=== PATIENT | male | born 1970 | race Caucasian/White ===

== ENCOUNTER 2021-05-10 10:02 | Emergency (ER) | payer OTHER, SELFPAY ==
[2021-05-10 10:19] VITALS: BP 149/99; PULSE 115; RESP 18; TEMP 37.3; O2SAT 100
--- NOTE | 2021-05-10 10:19 | ED.CHESTPAIN ---
HPI - Chest Pain General Chief Complaint: Chest Pain Stated Complaint: Chest pain Time Seen by Provider: 05/10/21 10:19 Source: patient and RN notes reviewed Mode of arrival: ambulatory Limitations: no limitations History of Present Illness HPI narrative: 50-year-old male presents to the [facility] the [facility] with complaints of sternal chest pain that woke him up out of his sleep at 0600. Patient denies any shortness of breath, nausea, vomiting. Denies being diaphoretic. Denies any cardiac history. States he does have a history of gout. Related Data Home Medications Medication Instructions Recorded Confirmed allopurinol 300 mg PO DAILY 08/08/19 05/10/21 Allergies Allergy/AdvReac Type Severity Reaction Status Date / Time atorvastatin Allergy Unknown Palpitation Verified 05/10/21 10:36 s Penicillins Allergy Unknown Unknown Verified 05/10/21 10:36 fenofibrate AdvReac Unknown HEART Verified 05/10/21 10:36 PALPITATIONS Review of Systems Review of Systems: All systems reviewed & are unremarkable except as noted in HPI and below Constitutional: Constitutional: Reports no additional constitutional complaints, Denies chills and Denies fever(s) Eyes: Eyes: Reports no additional eye complaints ENT: Reports system reviewed and no additional complaints, except as documented Cardiovascular: Cardiovascular: Reports chest pain, Reports rapid heart rate and Denies radiating jaw, neck or arm pain Respiratory: Respiratory: Reports no additional respiratory complaints, Denies cough and Denies dyspnea Gastrointestinal: Gastrointestinal: Reports no additional gastrointestinal complaints, Denies abdominal pain, Denies nausea and Denies vomiting Musculoskeletal: Musculoskeletal: Reports no additional musculoskeletal complaints Integumentary/Breasts: Skin/Breast: Reports system reviewed and no additional complaints, except as docu Neurologic: Reports system reviewed and no additional complaints, except as documented Psychiatric: Psychiatric: Reports no additional psychiatric complaints Allergic/Immunologic: Allergic/Immunologic: Reports no additional allergic/immunologic complaints [facility] Past Medical History Medical History (Updated 05/10/21 @ 12:17 by Kellie Rahman) Gout Social History Social History Gender identity (if verbalized by the patient): Male Comments At the time of my signature, I reviewed and agree with the nursing past medical, surgical, social, and family history. There is no relevant family history pertinent to the patient complaint. Exam Const: General: healthy appearing and no acute distress Nutritional Appearance: well nourished and obese Orientation/consciousness: patient oriented x3 Limitations: no limitations HENMT: Head: normal to inspection Eyes: Pupils: Equal, round and reactive pupils present Neck: Neck: normal visual inspection, no lymphadenopathy and no meningeal signs Chest: Chest palpation & inspection: normal inspection of the chest Resp: Effort & Inspection: normal respiratory effort Cardio: Rate: tachycardic GI: GI Palp: Yes Soft to palpation and No Tenderness to palpation present (GI) Back/Spine/Pelvis: Back: no CVA tenderness Skin: General skin exam: normal color Rashes: no rashes Wounds: no wounds Course Course Emergency Course: Transfer instructions reviewed with patient, as well as provided in writing per nursing staff. The instructions also include specific and strict GO TO THE ER. Patient was offered EMS transport, patient declined. Explained risks and benefits of declining EMS transport, patient verbalized understanding All questions have been answered, and the patient deny any further questions. Vital Signs Vital signs: Vital Signs Temperature 99.2 F 05/10/21 10:19 Pulse Rate 115 H 05/10/21 10:19 Respiratory Rate 18 05/10/21 10:19 Blood Pressure 149/99 H 05/10/21 10:19 Pulse Oximetry 100 09
--- NOTE | 2021-05-10 10:20 | ECG_ITS ---
Measurements Intervals [place] Rate: 105 P: 49 MT: 156 QRS: 21 QRSD: 86 T: 29 QT: 319 QTc: 422 Interpretive Statements SINUS TACHYCARDIA ANTEROSEPTAL INFARCT, AGE INDETERMINATE CONSIDER INFERIOR INFARCT, AGE INDETERMINATE BORDERLINE T WAVE ABNORMALITY- LAT/HIGH LAT LEADS ABNORMAL ECG Electronically Signed On 05-10-2021 10:48:08 CDT by Jacky Hernandez D.O.
[2021-05-10] MEDS: ASPIRIN 81 MG CHEWABLE TABLET 324 MG PO (10:34)
--- NOTE | 2021-05-10 10:38 | ECG_ITS ---
Rate 111 [place] 179 QRSd 85 QT 319 QTc 434 --[place]-- P 57 QRS 30 T 27 SINUS TACHYCARDIA MINIMAL Q WAVES- INFERIOR LEADS ANTEROSEPTAL INFARCT, AGE INDETERMINATE BORDERLINE T WAVE ABNORMALITY- INF/LAT LEADS ABNORMAL ECG Electronically Signed On 05-10-2021 11:07:18 CDT by Jacky Hernandez D.O. COMPARED TO ECG 05/10/2021 10:32:43 NO SIGNIFICANT CHANGES MTDD
== END 2021-05-10 10:42 | disposition short-term general hospital (02) ==
PROVIDERS: Emergency Provider Nurse Practitioner; PCP Internal Medicine
DX: R07.9 Chest pain, unspecified (principal)
CPT/HCPCS: 93005; 99213; A9270; G0463

== ENCOUNTER 2021-05-10 11:00 | Emergency (ER) | payer OTHER, SELFPAY ==
--- NOTE | ~2021-05-10 | XR_ITS ---
EXAMINATION: XR chest 2V DATE: 05/10/2021 11:35 INDICATION: Midsternal chest pain. TECHNIQUE: PA and lateral views of the chest were obtained. COMPARISON: Chest radiograph dated 11/29/04 FINDINGS: The lungs remain clear with no focal airspace opacities, pulmonary edema, pleural effusion or pneumot horax. The cardiomediastinal silhouette is normal. Mild thoracic spondylosis. IMPRESSION: 1. No acute cardiopulmonary disease. Reviewed, dictated and finalized at location A.
--- NOTE | 2021-05-10 11:03 | ECG_ITS ---
SINUS TACHYCARDIA ANTEROSEPTAL INFARCT, AGE INDETERMINATE INFERIOR INFARCT, AGE INDETERMINATE BORDERLINE ST-T WAVE ABNORMALITY- HIGH LATERAL LEADS ABNORMAL ECG Electronically Signed On 05-12-2021 14:13:25 CDT by Jacky RUSSELL
[2021-05-10 11:36] LABS: Basophils Percent Auto 0.3 % (0.2-1.2); Eosinophils Percent Auto 0.3 % (0-4.4); Hematocrit 45.7 % (42.0-52.0); Hemoglobin 15.4 g/dL (14.0-18.0); Immature Granulocyte Absolute 0.01 K/mm3 (0.00-0.031); Immature Granulocyte Percent A 0.2 % (0-0.5); Lymphocytes Absolute Auto 1.09 K/mm3 (0.9-3.2); Lymphocytes Percent Auto 18.5 % (18.3-44.2); Mean Corpuscular HGB Conc 33.7 g/dl (32-36); Mean Corpuscular Volume 88.9 fl (80-100); Mean Platelet Volume 9.4 fl (7.4-10.4); Monocytes Absolute Auto 0.4 K/mm3 (0.1-0.6); Monocytes Percent Auto 6.1 % (2.6-8.5); Neutrophils Absolute Auto 4.4 K/mm3 (1.3-6.7); Neutrophils Percent Auto 74.6 % (45.5-73.1); Platelet Count Result 250 k/mm3 (150-375); Red Blood Count 5.14 M/mm3 (4.6-6.20); Red Cell Distribution Width 12.7 % (11.5-14.5); White Blood Count 5.9 K/mm3 (4.5-10.0)
[2021-05-10 11:49] LABS: Anion Gap 12 mmol/L (8-16); Blood Urea Nitrogen 11 mg/dL (9-20); Calcium 9.9 mg/dL (8.4-10.2); Carbon Dioxide 25 mmol/L (22-30); Chloride 101 mmol/L (98-107); Estimated Glomerular Filt Rate > 60; Glucose 117 mg/dL (65-110); Potassium 4.5 mmol/L (3.4-5.0); Sodium 138 mmol/L (137-145)
[2021-05-10 12:00] LABS: INR 0.9; Partial Thromboplastin Time 26.6 SECONDS (22.3-36.8); Prothrombin Time 12.2 Seconds (11.1-14.7)
[2021-05-10 12:02] LABS: Troponin I < 0.012 ng/mL (0.000-0.034)
[2021-05-10 13:28] VITALS: BP 174/92; PULSE 109; RESP 18; TEMP 36.6; O2SAT 100
--- NOTE | 2021-05-10 13:34 | PC.NURSE ---
patient reports that he wants to leave the hospital and has no cheat pain. patient states that he will just get his records and go see his PCP later this week. Patient walked out of ED without difficulty.
== END 2021-05-10 13:34 | disposition left against medical advice (07) ==
PROVIDERS: Emergency Provider Emergency Medicine; PCP Internal Medicine
DX: R07.89 Other chest pain (principal)
CPT/HCPCS: 36415; 71046; 80048; 84484; 85025; 85610; 85730; 93005; 99199

== ENCOUNTER 2021-12-14 17:22 | Emergency (ER) | payer OTHER, SELFPAY ==
[2021-12-14 17:32] VITALS: BP 140/91; PULSE 119; RESP 18; TEMP 37.1; O2SAT 100
--- NOTE | 2021-12-14 17:57 | ED.URI ---
HPI - URI/Sore Throat General Chief Complaint: Upper Respiratory Infection Stated Complaint: Cough,Vomiting Time Seen by Provider: 12/14/21 17:32 Source: patient and RN notes reviewed Mode of arrival: ambulatory Limitations: no limitations History of Present Illness HPI Narrative: 51-year-old male presenting for complaint of cough since 11/30/2021. He states he had taken new medication lisinopril/HCTZ approximately 8 doses prior to the start of the cough. He was seen at his PCPs office yesterday, advised to stop taking the medication for the nonproductive cough. The last dose was 2 days ago. Endorses coughing is worse at night, to the point of dry heaves. He denies associated chest pain, palpitations, dizziness, shortness of breath, wheezing, nausea, vomiting, fevers or chills. He reports concern if the medication is causing the cough versus an illness. Denies sick contacts. He is not vaccinated for COVID or flu. He states he is scheduled to follow-up with his PCP in 2 days. MD elicited complaint: cough Related Data Home Medications Medication Instructions Recorded Confirmed allopurinol 300 mg PO DAILY 08/08/19 12/14/21 lisinopril-hydrochlorothiazide tablet 12/14/21 12/14/21 Allergies Allergy/AdvReac Type Severity Reaction Status Date / Time atorvastatin Allergy Unknown Palpitation Verified 05/10/21 13:31 s Penicillins Allergy Unknown Unknown Verified 05/10/21 13:31 fenofibrate AdvReac Unknown HEART Verified 05/10/21 13:31 PALPITATIONS lisinopril AdvReac Cough Verified 12/14/21 17:58 Review of Systems Review of Systems: CONSTITUTIONAL: Denies malaise, chills, sweats, fever EYES: Denies visual changes, redness, or discharge ENT: Reports rhinorrhea, denies congestion, sinus pain, otalgia, sore throat CARDIOVASCULAR: Denies chest pain, palpitations, edema RESPIRATORY: Reports cough, post nasal drainage. Denies dyspnea GASTROINTESTINAL: Denies abdominal pain, nausea, vomiting, diarrhea SKIN: Denies rash or itching MUSCULOSKELETAL: Denies myalgia NEUROLOGIC: Denies headache PMFSH Past Medical History Medical History Gout Social History Social History : Male Exam Narrative: GENERAL: well -appearing HEAD: Normocephalic EYES: conjunctivae clear ENT: Mucous membranes moist. TM pearly davidson with dull light reflex bilaterally; no tragal tenderness. Oropharynx erythematous without lesions or exudate, no drooling, no hoarseness, no trismus, uvula midline. No tripod positioning, muffled voice, soft palate or pharyngeal wall bulging NECK: Supple. 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 Lungs Clear to auscultation, breath sounds equal. No wheezing, rhonchi, rales, or stridor. No respiratory distress, speaks in full sentences. HEART: Regular rate and rhythm. No murmur heard. SKIN: Warm, dry, no rash. NEURO: Alert and oriented x3. PSYCH: talkative/anxious Course Course Emergency Course: Patient is aware of diagnosis, understands and agrees to treatment plan. Anticipatory guidance given. Patient agrees to follow-up as directed and is aware of reasons to seek care at the emergency department. Portions of this record may have been created with voice recognition software Level of Care: Express Care Visit Vital Signs Vital signs: Vital Signs Temperature 98.8 F 12/14/21 17:32 Pulse Rate 119 H 12/14/21 17:32 Respiratory Rate 18 12/14/21 17:32 Blood Pressure 140/91 H 12/14/21 17:32 Pulse Oximetry 100 12/14/21 17:32 Temperature 98.8 F 12/14/21 17:32 Pulse Rate 119 H 12/14/21 17:32 Respiratory Rate 18 12/14/21 17:32 Blood Pressure 140/91 H 12/14/21 17:32 Pulse Oximetry 100 12/14/21 17:32 reviewed MDM - URI/Sore Throat MDM Narrative Medical decision making narrative: covid, strep tests negative. CXR deferred, p
== END 2021-12-14 18:19 | disposition home or self-care (01) ==
PROVIDERS: Emergency Provider Nurse Practitioner Family; PCP Internal Medicine
DX: R05.9 Cough, unspecified (principal); Z20.822 Contact with and (suspected) exposure to COVID-19
CPT/HCPCS: 87081; 87426; 87880; 99213; C9803; G0463

== ENCOUNTER 2022-01-03 04:43 | Emergency (ER) | payer OTHER, SELFPAY ==
--- NOTE | ~2022-01-03 | CT_ITS ---
EXAMINATION: CT abdomen pelvis wo con DATE: 01/03/2022 05:20 INDICATION: Right flank pain. TECHNIQUE: Computed tomography (CT) of the abdomen and pelvis was performed without intravenous contr ast. Automated exposure control and iterative reconstruction technique were employed. The dose-length product was 1581.45 mGy-cm. COMPARISON: CT abdomen and pelvis 12/21/2005 FINDINGS: The visualized portions of the lung bases are clear without pneumonia or pleural effusion. The heart size is normal. No pericardial effusion. There is diffuse hepatic steatosis. The gallbladde r, spleen, pancreas, adrenal glands, and left kidney are normal. There is mild right hydronephrosis a nd hydroureter. There is a 2 mm stone in distal right ureter. There are scattered diverticula in the colon. There is fat stranding around a sigmoid diverticulum, consistent with diverticulitis. There ar e no dilated loops of bowel. The appendix is normal. Bowel malrotation is noted. There are no patholo gically enlarged lymph nodes. There is no free intraperitoneal fluid. There is an umbilical hernia co ntaining fat. There is severe lower lumbar spondylosis. There is mild thoracic spondylosis. IMPRESSION: 1. 2 mm stone in distal right ureter with mild right hydronephrosis and hydroureter. 2. Acute sigmoid diverticulitis. No perforation or abscess. Reviewed, dictated and finalized at location A. IMPRESSION: 1. 2 mm stone in distal right ureter with mild right hydronephrosis and hydrour eter. 2. Acute sigmoid diverticulitis. No perforation or abscess.
[2022-01-03 04:57] VITALS: BP 150/107; PULSE 108; RESP 20; TEMP 36.3; O2SAT 99
--- NOTE | 2022-01-03 05:05 | ED.MALEGU ---
HPI - Male Genitourinary General Chief complaint: Urogenital-Male Stated complaint: right flank pain Time Seen by Provider: 01/03/22 04:58 Source: patient History of Present Illness HPI Narrative: Patient woke up around 4:00 with urinary urgency when urinating he developed right sided flank pain he is continue to have the urge to urinate but is on able to urinate. His pain is sharp, constant, radiates to his groin, no clear aggravating or alleviating factors. Reports a history of kidney stones and this feels like his prior stone. Denies any fevers chills cough congestion nausea vomiting diarrhea. Related Data Home Medications Medication Instructions Recorded Confirmed allopurinol 300 mg PO DAILY 08/08/19 12/14/21 Allergies Allergy/AdvReac Type Severity Reaction Status Date / Time atorvastatin Allergy Unknown Palpitation Verified 01/03/22 05:07 s Penicillins Allergy Unknown Unknown Verified 01/03/22 05:07 fenofibrate AdvReac Unknown HEART Verified 01/03/22 05:07 PALPITATIONS lisinopril AdvReac Cough Verified 01/03/22 05:07 Review of Systems Review of Systems: CONSTITUTIONAL: Denies fever, chills, or sweats. EYES: Denies visual changes, redness, or discharge. ENT: Denies rhinorrhea, congestion, sore throat, or otalgia. CARDIOVASCULAR: Denies chest pain, palpitations, or edema. RESPIRATORY: Denies cough or dyspnea. GASTROINTESTINAL: Denies nausea, vomiting, or diarrhea. GENITOURINARY: Denies dysuria or hematuria. SKIN: Denies rash or itching. MUSCULOSKELETAL: Denies back pain, joint pain, or myalgia. NEUROLOGIC: Denies headache, numbness, dizziness, or weakness. PSYCHIATRIC: Denies anxiety or depression. All systems reviewed & are unremarkable except as noted in HPI and below PMFSH Past Medical History Medical History (Updated 01/03/22 @ 06:48 by Aries Calderon MD) Gout Ureteral stone Social History Social History Gender identity (if verbalized by the patient): Male Exam Narrative: GENERAL: Well-appearing, well-nourished, and in no acute distress. HEAD: Normocephalic, atraumatic. EYES: PERRLA and EOMI. ENT: Nares clear, no rhinorrhea or epistaxis. Mucous membranes moist. NECK: Supple. No masses. No JVD ABDOMEN: Soft, nontender, nondistended, normal active bowel sounds. EXTREMITIES: Normal range of motion. No edema. SKIN: Warm, dry, no rash. NEURO: No focal deficits. Alert and oriented x3. PSYCH: Normal mood and affect. Course Reevaluation(s) Reevaluation #1: Patient feeling much improved results and plan reviewed with patient. Patient is comfortable outpatient plan. Date: 01/03/22 Time: 06:43 Vital Signs Vital signs: Vital Signs Temperature 36.3 C L 01/03/22 04:57 Pulse Rate 108 H 01/03/22 04:57 Respiratory Rate 20 01/03/22 04:57 Blood Pressure 150/107 H 01/03/22 04:57 Pulse Oximetry 99 01/03/22 04:57 Temperature 36.3 C L 01/03/22 04:57 Pulse Rate 85 01/03/22 06:46 Respiratory Rate 17 01/03/22 06:46 Blood Pressure 149/91 H 01/03/22 06:46 Pulse Oximetry 98 01/03/22 06:46 MDM - Male Genitourinary MDM Narrative Medical decision making narrative: H&P as above, vss, pt looks clinically well, exam inability to reproduce pain with palpation, labs clinically unremarkable, img small ureteral stone and diverticulitis, additional labs/img considered, symptomatic relief available as needed, on reevaluation pt continues to looks clinically well. Suspect stone is the primary cause of patient's discomfort diverticulitis may also be a contributing factor, dns kidney injury, infected stone, severe sepsis, abscess, perforation. plan to tx/monitor as op w/ pcm f/u findings/plan discussed with pt, pt agree/comfortable with plan, return precautions given Lab Data Result diagrams: 01/03/22 05:08 01/03/22 05:08 Labs: Lab Results 01/03/22 01/03/22 01/03/22 Range/Units 05:08 05:08 05
--- NOTE | 2022-01-03 05:11 | PC.NURSE ---
Patient in CT at this time.
[2022-01-03 05:14] LABS: Basophils Percent Auto 0.4 % (0.2-1.2); Eosinophils Absolute Auto 0.2 K/mm3 (0-0.3); Eosinophils Percent Auto 2.2 % (0-4.4); Hematocrit 45.4 % (42.0-52.0); Hemoglobin 14.6 g/dL (14.0-18.0); Immature Granulocyte Absolute 0.02 K/mm3 (0.00-0.031); Immature Granulocyte Percent A 0.2 % (0-0.5); Lymphocytes Absolute Auto 2.97 K/mm3 (0.9-3.2); Mean Corpuscular HGB Conc 32.2 g/dl (32-36); Mean Corpuscular Hemoglobin 29.9 pg (26-34); Mean Platelet Volume 9.2 fl (7.4-10.4); Monocytes Absolute Auto 0.8 K/mm3 (0.1-0.6); Monocytes Percent Auto 9.6 % (2.6-8.5); Neutrophils Absolute Auto 4.1 K/mm3 (1.3-6.7); Neutrophils Percent Auto 50.6 % (45.5-73.1); Platelet Count Result 238 k/mm3 (150-375); Red Blood Count 4.88 M/mm3 (4.6-6.20); Red Cell Distribution Width 13.5 % (11.5-14.5)
[2022-01-03] MEDS: SODIUM CHLORIDE 0.9% IV 1,000 ML 999 ML IV CONT (05:17)
[2022-01-03] MEDS: KETOROLAC 15 MG/ML VIAL (*BKC) IV PUSH (05:31)
[2022-01-03 05:37] LABS: Alanine Aminotransferase 35 U/L (6-50); Albumin Level 4.3 g/dL (3.5-5.1); Alkaline Phosphatase 100 U/L (38-126); Anion Gap 8 mmol/L (8-16); Aspartate Amino Transferase 35 U/L (17-59); Bilirubin,Total 0.5 mg/dL (0.2-1.3); Blood Urea Nitrogen 11 mg/dL (9-20); Calcium 8.3 mg/dL (8.4-10.2); Carbon Dioxide 25 mmol/L (22-30); Chloride 104 mmol/L (98-107); Estimated Glomerular Filt Rate > 60; Glucose 114 mg/dL (65-110); Potassium 4.1 mmol/L (3.4-5.0); Sodium 137 mmol/L (137-145)
[2022-01-03 05:37] LABS: Appearance Urine Clear (Clear); Bilirubin Urine Negative (Negative); Color Urine Yellow (Yellow); Glucose Urine UA Negative (Negative); Ketones Urine Negative (Negative); Leukocyte Esterase Ur Negative LEU/UL (Negative); Nitrate Urine Negative (Negative); Protein Urine Negative (Negative); Specific Grav Ur 1.025 (1.001-1.035); Urobilinogen Urine 0.2 mg/dL (<2.0); pH Urine 5.5 (5.0-9.0)
[2022-01-03 05:42] LABS: Add Urine Microscopic? YES; Blood Urine Trace (Negative)
[2022-01-03 06:46] VITALS: BP 149/91; PULSE 85; RESP 17; O2SAT 98
== END 2022-01-03 07:07 | disposition home or self-care (01) ==
PROVIDERS: Emergency Provider Emergency Medicine; PCP Internal Medicine
DX: N13.2 Hydronephrosis with renal and ureteral calculous obstruction (principal); K57.32 Diverticulitis of large intestine without perforation or abscess without bleeding; M10.9 Gout, unspecified; Z87.442 Personal history of urinary calculi
CPT/HCPCS: 36415; 74176; 80053; 81001; 85025; 96361; 96374; 96375; 99284; J0131; J1885; J7030

== ENCOUNTER 2022-01-05 05:04 | Emergency (ER) | payer OTHER, SELFPAY ==
--- NOTE | ~2022-01-05 | CT_ITS ---
EXAMINATION: CT abdomen pelvis wo con DATE: 01/05/2022 05:46 INDICATION: Right flank pain. Right lower quadrant abdominal pain. TECHNIQUE: Computed tomography (CT) of the abdomen and pelvis was performed without intravenous contr ast. Automated exposure control and iterative reconstruction technique were employed. The dose-length product was 810.18 mGy-cm. COMPARISON: CT abdomen and pelvis 01/03/2022 FINDINGS: The visualized portions of the lung bases demonstrate mild atelectasis. No pleural effusion . The heart size is normal. No pericardial effusion. There is diffuse hepatic steatosis. The gallblad paul, spleen, pancreas, adrenal glands, and left kidney are normal. There is mild right hydronephrosis and hydroureter. There is a 2 mm stone in distal right ureter. There is diverticulosis of the colon without evidence of diverticulitis. There are no dilated loops of bowel. Bowel malrotation is noted. The appendix is normal. There is an umbilical hernia containing fat. There are no pathologically enla rged lymph nodes. There is no free intraperitoneal fluid. There is severe lower lumbar spondylosis. 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 IMPRESSION: 1. Unchanged 2 mm stone in distal right ureter with mild right hydronephrosis and hydroureter. 2. Umbilical hernia containing fat. Reviewed, dictated and finalized at location A. IMPRESSION: 1. Unchanged 2 mm stone in distal right ureter with mild right hydronephrosis a nd hydroureter. 2. Umbilical hernia containing fat.
[2022-01-05 05:07] VITALS: BP 152/97; PULSE 109; RESP 18; TEMP 36.2; O2SAT 100
[2022-01-05 05:25] VITALS: BP 151/101; PULSE 108; RESP 18; O2SAT 97
[2022-01-05 05:35] LABS: Basophils Percent Auto 0.3 % (0.2-1.2); Eosinophils Absolute Auto 0.1 K/mm3 (0-0.3); Eosinophils Percent Auto 1.2 % (0-4.4); Hematocrit 45.3 % (42.0-52.0); Hemoglobin 14.7 g/dL (14.0-18.0); Immature Granulocyte Absolute 0.02 K/mm3 (0.00-0.031); Immature Granulocyte Percent A 0.2 % (0-0.5); Lymphocytes Absolute Auto 1.81 K/mm3 (0.9-3.2); Lymphocytes Percent Auto 20.9 % (18.3-44.2); Mean Corpuscular HGB Conc 32.5 g/dl (32-36); Mean Corpuscular Volume 92.4 fl (80-100); Mean Platelet Volume 9.1 fl (7.4-10.4); Monocytes Absolute Auto 0.7 K/mm3 (0.1-0.6); Monocytes Percent Auto 8.5 % (2.6-8.5); Neutrophils Percent Auto 68.9 % (45.5-73.1); Platelet Count Result 221 k/mm3 (150-375); Red Cell Distribution Width 13.5 % (11.5-14.5); White Blood Count 8.7 K/mm3 (4.5-10.0)
--- NOTE | 2022-01-05 05:35 | PC.NURSE ---
Pt to CT at this time.
--- NOTE | 2022-01-05 05:38 | ED.ABDPAIN ---
HPI - Abdominal Pain General Chief Complaint: Abdominal Pain Stated Complaint: right flank pain Time Seen by Provider: 01/05/22 05:23 History of Present Illness HPI narrative: Patient is a 51-year-old male complain right flank pain, burning, 7 out of 10, nonradiating started this morning. Patient states that he was here 2 days ago and was diagnosed with a kidney stone and diverticulitis. Patient states that he prescribed metronidazole and Levaquin. Patient states that he passes kidney stone 2 days ago but this morning his pain recurred. Patient denies any chest pain, shortness of breath, abdominal pain, nausea, vomitin, diarrhea, urinary symptoms, fever or chills. Related Data Home Medications Medication Instructions Recorded Confirmed allopurinol 300 mg tablet 300 mg PO DAILY 08/08/19 12/14/21 Allergies Allergy/AdvReac Type Severity Reaction Status Date / Time atorvastatin Allergy Unknown Palpitation Verified 01/05/22 05:22 s Penicillins Allergy Unknown Unknown Verified 01/05/22 05:22 fenofibrate AdvReac Unknown HEART Verified 01/05/22 05:22 PALPITATIONS lisinopril AdvReac Cough Verified 01/05/22 05:22 Review of Systems Review of Systems: All systems reviewed & are unremarkable except as noted in HPI and below Constitutional: Constitutional: Denies body ache(s), Denies chills, Denies excessive sweating, Denies fatigue, Denies fever(s), Denies headache(s), Denies lethargy, Denies malaise, Denies weakness and Denies weight loss Eyes: Eyes: Denies blurry vision, Denies change in vision and Denies loss of vision ENT: Denies dizziness, Denies ear discharge, Denies headache(s), Denies lip swelling, Denies epistaxis, Denies nasal congestion, Denies neck pain, Denies throat swelling and Denies tongue swelling Cardiovascular: Cardiovascular: Denies chest pain, Denies chest pain at rest, Denies chest pain with activity, Denies diaphoresis, Denies rapid heart rate, Denies edema, Denies irregular heart rhythm, Denies lightheadedness, Denies palpitations, Denies dyspnea and Denies dyspnea on exertion Respiratory: Respiratory: Denies chest congestion, Denies cough, Denies hemoptysis, Denies dyspnea and Denies dyspnea on exertion Gastrointestinal: Gastrointestinal: Denies abdominal pain, Denies melena, Denies hematochezia, Denies diarrhea, Denies nausea, Denies vomiting and Denies hematemesis Musculoskeletal: Musculoskeletal: Denies abnormal gait, Denies deformity, Denies joint swelling, Denies limited range of motion, Denies neck pain and Denies numbness Neurologic: Denies Abnormal speech present, Denies abnormal gait, Denies confusion, Denies dizziness, Denies headache(s), Denies focal weakness, Denies loss of vision, Denies numbness, Denies Other visual disturbances, Denies Sensory deficit (Neuro) and Denies weakness Psychiatric: Psychiatric: Denies confusion, Denies depression, Denies auditory hallucinations, Denies homicidal ideation and Denies suicidal ideation Endocrine: Endocrine: Denies cold intolerance, Denies excessive sweating, Denies fatigue, Denies heat intolerance and Denies palpitations Hematologic/Lymphatic: Hematologic/Lymphatic: Denies easy bleeding and Denies easy bruising Allergic/Immunologic: Allergic/Immunologic: Denies lip swelling, Denies throat swelling and Denies tongue swelling PMFSH Past Medical History Medical History Gout Ureteral stone Social History Social History Gender identity (if verbalized by the patient): Male Exam Const: General: cooperative, comfortable, no acute distress, well developed, alert and awake; No confusion Nutritional Appearance: obese Orientation/consciousness: oriented to person, oriented to place, oriented to time, patient oriented x3 and No confusion Limitations: no limitations HENMT: Head: normal to inspection, normocephalic and atraumatic Ear
[2022-01-05 05:45] LABS: Alanine Aminotransferase 27 U/L (6-50); Albumin Level 4.5 g/dL (3.5-5.1); Alkaline Phosphatase 105 U/L (38-126); Anion Gap 8 mmol/L (8-16); Aspartate Amino Transferase 31 U/L (17-59); Bilirubin,Total 1.2 mg/dL (0.2-1.3); Blood Urea Nitrogen 13 mg/dL (9-20); Calcium 9.1 mg/dL (8.4-10.2); Carbon Dioxide 26 mmol/L (22-30); Chloride 102 mmol/L (98-107); Estimated CRCL calculation 67 ml/min; Estimated Glomerular Filt Rate 49; Glucose 114 mg/dL (65-110); Lipase 31 U/L (23-300); Potassium 4.1 mmol/L (3.4-5.0); Sodium 136 mmol/L (137-145)
[2022-01-05] MEDS: KETOROLAC 30 MG/ML VIAL (*BKC) IV PUSH (05:47)
[2022-01-05] MEDS: LACTATED RINGERS 1,000 ML 999 ML IV CONT (05:49)
[2022-01-05 05:50] LABS: Appearance Urine Clear (Clear); Bilirubin Urine Negative (Negative); Blood Urine Negative (Negative); Color Urine Yellow (Yellow); Glucose Urine UA Negative (Negative); Ketones Urine Negative (Negative); Leukocyte Esterase Ur Negative LEU/UL (Negative); Nitrate Urine Negative (Negative); Protein Urine Negative (Negative); Specific Grav Ur >= 1.030 (1.001-1.035); Urobilinogen Urine 0.2 mg/dL (<2.0)
[2022-01-05] MEDS: TAMSULOSIN HCL 0.4 MG CAPSULE PO (05:50)
[2022-01-05 06:19] LABS: Add Urine Microscopic? NO
[2022-01-05 06:37] VITALS: BP 129/85; PULSE 90; RESP 16; O2SAT 94
[2022-01-05 06:55] VITALS: BP 129/85; PULSE 91; RESP 18; O2SAT 97
[2022-01-05 07:25] VITALS: BP 128/84; PULSE 88; RESP 18; O2SAT 99
== END 2022-01-05 07:27 | disposition home or self-care (01) ==
PROVIDERS: Emergency Provider Emergency Medicine; PCP Internal Medicine
DX: N13.2 Hydronephrosis with renal and ureteral calculous obstruction (principal)
CPT/HCPCS: 36415; 74176; 80053; 81003; 83690; 85025; 96361; 96374; 99284; A9270; J1885; J7120